=== PATIENT | female | born 1975 | race Caucasian/White ===

== ENCOUNTER 2017-12-09 20:42 | Emergency (ER) | payer OTHER ==
[~2017-12-09] VITALS: Ht 157.5 cm; Wt 44.5 kg
[2017-12-09] MEDS ORDERED: TDAP DIPH,PERTUSS,TET VAC/PF 0.5 ML DISP.SYRIN IM ONE (21:15)
[2017-12-09 22:11] VITALS: BP 110/66
--- NOTE | 2017-12-09 22:11 | NUR ---
Patient discharged to home in stable conditon WITH SIGINIFICANT OTHER TAKING PATIENT HOME. Written and verbal after care instructions given. Patient verbalizes understanding of instructions.
== END 2017-12-09 22:16 | disposition home or self-care (01) ==
LOC: ER 20:44 → EDBD 20:44 → ER 22:16
DX: S60.222A Contusion of left hand, initial encounter (principal); Z88.2 Allergy status to sulfonamides; W22.8XXA Striking against or struck by other objects, initial encounter; Y93.89 Activity, other specified; Y92.89 Other specified places as the place of occurrence of the external cause; Y99.8 Other external cause status
CPT/HCPCS: 73130; A4663

== ENCOUNTER 2018-09-18 08:28 | Emergency (ER) | payer BC ==
[~2018-09-18] VITALS: Ht 157.5 cm; Wt 45.4 kg
--- NOTE | 2018-09-18 08:37 | NUR ---
[facility] AT BEDSIDE FOR MSE.
--- NOTE | 2018-09-18 09:45 | NUR ---
US TECH AT BEDSIDE.
--- NOTE | 2018-09-18 09:57 | NUR ---
[facility] AT BEDSIDE FOR PT UPDATE.
--- NOTE | 2018-09-18 10:44 | NUR ---
[facility] AT BEDSIDE FOR PT UPDATE.
--- NOTE | 2018-09-18 10:53 | NUR ---
DPatient discharged to home in stable conditon. Written and verbal after care instructions given. Patient verbalizes understanding of instructions. ALL BELONGINGS W/ PT. PT SELF-AMBULATED W/O DIFFICULTY.
[2018-09-18 10:55] VITALS: BP 108/66
== END 2018-09-18 10:56 | disposition home or self-care (01) ==
LOC: ER 08:28
DX: M79.662 Pain in left lower leg (principal); Z88.2 Allergy status to sulfonamides
CPT/HCPCS: 73590; A4663

== ENCOUNTER 2019-05-25 22:36 | Emergency (ER) | payer BC ==
[~2019-05-25] VITALS: Ht 154.9 cm; Wt 49.9 kg
--- NOTE | 2019-05-25 23:15 | NUR ---
Dr. Cox speaking with Dr. Alina Myles HEAD BATCHER.
[2019-05-25 23:34] LABS: BASOPHILS # (AUTO) 0.1 K/uL (0.0-8.0); BASOPHILS % (AUTO) 0.7 % (0.0-2.0); EOSINOPHILS # (AUTO) 0.2 K/uL (0.0-0.7); EOSINOPHILS % (AUTO) 2.5 % (0.0-7.0); HEMOGLOBIN 12.9 g/dL (10.9-14.3); LYMPHOCYTES # (AUTO) 2.3 K/uL (20.0-40.0); LYMPHOCYTES % (AUTO) 28.8 % (20.5-51.5); MEAN CORPUSCULAR HEMOGLOBIN 31.1 uug (24.7-32.8); MEAN CORPUSCULAR HGB CONC 35 g/dL (32.3-35.6); MEAN CORPUSCULAR VOLUME 89.5 fL (75.5-95.3); MONOCYTES # (AUTO) 0.9 K/uL (2.0-10.0); MONOCYTES % (AUTO) 11.5 % (0.0-11.0); NEUTROPHILS # (AUTO) 4.6 K/uL (1.8-8.9); NEUTROPHILS % (AUTO) 56.5 % (38.5-71.5); PLATELET COUNT (AUTO) 370 K/uL (179-408); RED BLOOD CELL COUNT(AUTO) 4.13 MIL/uL (3.63-4.92); WHITE BLOOD COUNT (AUTO) 8.1 K/uL (3.8-11.8)
[2019-05-25 23:51] LABS: BILIRUBIN,DIRECT 0.1 mg/dL (0.0-0.2); BILIRUBIN,TOTAL 0.5 mg/dL (0.2-1.0); CREATININE 0.8 mg/dL (0.6-1.3); POTASSIUM 3.5 mmol/L (3.5-5.1); TOTAL PROTEIN, SERUM 7.3 g/dL (6.4-8.2)
[2019-05-26 01:16] VITALS: BP 109/65
--- NOTE | 2019-05-26 01:22 | NUR ---
Patient discharged to home in stable conditon. Written and verbal after care instructions given. Patient verbalizes understanding of instructions. Walked out of ER with no distress noted.
== END 2019-05-26 01:23 | disposition home or self-care (01) ==
LOC: ER 22:37
DX: N92.0 Excessive and frequent menstruation with regular cycle (principal); Z88.2 Allergy status to sulfonamides
CPT/HCPCS: 36415; 76856; 85025; 85730; 86850; 86900; 86901; A4663